=== PATIENT | male | born 1965 | race Caucasian/White ===

== ENCOUNTER 2017-07-29 14:17 | Inpatient (IN) | payer OTHER ==
[~2017-07-29] VITALS: Ht 167.6 cm; Wt 91.2 kg
[2017-07-29] MEDS ORDERED: ALLO100T PO (14:27)
[2017-07-29] MEDS ORDERED: ONDANSETRON 4 MG/2 ML VIAL ONE ×2 (14:41→15:47)
[2017-07-29] MEDS ORDERED: HYDROMORPHONE 2 MG/1 ML DISP.SYRIN ONE ×2 (14:41→15:47)
[2017-07-29] MEDS ORDERED: HYDROMORPHONE 1 MG/1 ML DISP.SYRIN IV ONE ×2 (14:45→15:45)
[2017-07-29] MEDS ORDERED: IV NORMAL SALINE 1000 ML BAG IV ONE (14:45)
[2017-07-29] MEDS ORDERED: ONDANSETRON 4 MG/2 ML VIAL IV ONE (14:45)
[2017-07-29 14:59] LABS: CREATININE 1.1 mg/dL (0.6-1.3); POTASSIUM 3.8 mmol/L (3.5-5.1)
[2017-07-29 15:02] LABS: BASOPHILS # (AUTO) 0.1 K/uL (0.0-8.0); BASOPHILS % (AUTO) 0.4 % (0.0-2.0); EOSINOPHILS # (AUTO) 0.1 K/uL (0.0-0.7); EOSINOPHILS % (AUTO) 0.8 % (0.0-7.0); HEMATOCRIT 44.7 % (36.7-47.1); HEMOGLOBIN 15.3 g/dL (12.5-16.3); LYMPHOCYTES # (AUTO) 1.4 K/uL (20.0-40.0); LYMPHOCYTES % (AUTO) 9.8 % (20.5-51.5); MEAN CORPUSCULAR HEMOGLOBIN 29.6 uug (23.8-33.4); MEAN CORPUSCULAR HGB CONC 34 g/dL (32.5-36.3); MEAN CORPUSCULAR VOLUME 86.3 fL (73.0-96.2); MONOCYTES # (AUTO) 0.9 K/uL (2.0-10.0); MONOCYTES % (AUTO) 6.4 % (0.0-11.0); NEUTROPHILS # (AUTO) 12.1 K/uL (1.8-8.9); NEUTROPHILS % (AUTO) 82.6 % (38.5-71.5); PLATELET COUNT (AUTO) 207 K/uL (152-348); RED BLOOD CELL COUNT(AUTO) 5.18 MIL/uL (4.06-5.63); WHITE BLOOD COUNT (AUTO) 14.6 K/uL (3.6-10.2)
[2017-07-29 15:05] LABS: BILIRUBIN,DIRECT 0.1 mg/dL (0.0-0.2); BILIRUBIN,TOTAL 0.9 mg/dL (0.2-1.0); TOTAL PROTEIN, SERUM 7.7 g/dL (6.4-8.2)
[2017-07-29] MEDS ORDERED: ONDANSETRON IV *ER 4 MG/2 ML VIAL IV ONE (15:45)
--- NOTE | 2017-07-29 16:11 | NUR ---
transfer to floor pending on bed availability
--- NOTE | 2017-07-29 16:30 | NUR ---
wilmer jalloh at bedside.
--- NOTE | 2017-07-29 17:00 | NUR ---
pt transfered to floor.
--- NOTE | 2017-07-29 17:15 | NUR ---
Patient in from [facility] via [facility]. Pt. AAOX4. vitals signs stable. No c/of pain over all skin c.d.i. patient placed on monitor. Pt's sister and next of kin at bedside. Addendum: 07/29/17 at 1822 by SHAYNE PURCELL RN [facility] patent. and came up infusing with Normal saline as reported to be finished.
[2017-07-29 17:40] LABS: *BILIRUBIN,URIN NEGATIVE (NEGATIVE); *BLOOD, URINE 2+ (NEGATIVE); *CLARITY,URINE CLEAR (CLEAR); *COLOR,URINE YELLOW (YELLOW); *KETONES,URINE NEGATIVE (NEGATIVE); *PROTEIN,URINE TRACE (NEGATIVE); *UROBILINOGEN,URINE 0.2 E.U./dl (NORMAL); LEUKOCYTE ESTERASE ,URINE NEGATIVE (NEGATIVE); NITRITE, URINE NEGATIVE (NEGATIVE); PH,URINE 5.5 (5.0-8.0); UGLUCOSE NEGATIVE (NEGATIVE)
[2017-07-29] MEDS ORDERED: ONDANSETRON 4 MG/2 ML VIAL IV PRN (17:45)
[2017-07-29] MEDS ORDERED: MORPHINE SULFATE 2 MG/1 ML DISP.SYRIN IV PRN (17:45)
[2017-07-29] MEDS ORDERED: HYDROCODONE/APAP 10-325 MG TABLET PO PRN (17:45)
[2017-07-29] MEDS ORDERED: ZOLPIDEM 5 MG TABLET PO PRN (17:45)
[2017-07-29] MEDS ORDERED: MAGNESIUM HYDROXIDE 30 ML LIQUID UDC PO PRN (17:45)
[2017-07-29] MEDS ORDERED: ACETAMINOPHEN 325 MG TABLET PO PRN (17:45)
[2017-07-29 17:47] LABS: BACTERIA,URINE FEW /HPF (NONE SEEN); SQUAMOUS EPITHELIAL CELL,UR FEW /HPF (NONE SEEN); WBC,URINE 0-3 /HPF (0-3)
--- NOTE | 2017-07-29 18:00 | NUR ---
Mari Rodriguez surgeon Dr. Ames in the room and applied abdominal binder for reduction of protruded hernia. Admitting attending NCaleb P. in the unit and aware of pt's arrival to room 216.
[2017-07-29 18:16] VITALS: BP 121/71
--- NOTE | 2017-07-29 19:00 | NUR ---
RECEIVED PT ASLEEP ON BED COMFORTABLY. PT SHOWS NO SIGNS OF DISTRESS. PT IV INTACT AND PATENT. CALL LIGHT WITHIN REACH. BED ALARM ON AND IN LOW POSITION, SIDE RAILS UPX2. WILL CONTINUE TO MONITOR.
[2017-07-29 20:00] VITALS: BP 104/66
[2017-07-29] MEDS: MORPHINE SULFATE 4 MG/1 ML DISP.SYRIN IV PRN (20:43)
[2017-07-29] MEDS: ENOXAPARIN SODIUM 40 MG/0.4 ML DISP.SYRIN SQ SCH ×2 (20:48→20:51)
[2017-07-29] MEDS: IV NS 1000 ML 1,000 ML IV PRN (23:57)
[2017-07-30] MEDS: MORPHINE SULFATE 4 MG/1 ML DISP.SYRIN IV PRN ×6 (00:52→22:11)
[2017-07-30 04:00] VITALS: BP 119/70
[2017-07-30 05:46] LABS: BASOPHILS % (AUTO) 0.3 % (0.0-2.0); EOSINOPHILS # (AUTO) 0.1 K/uL (0.0-0.7); EOSINOPHILS % (AUTO) 0.8 % (0.0-7.0); HEMATOCRIT 43.9 % (36.7-47.1); LYMPHOCYTES # (AUTO) 1.1 K/uL (20.0-40.0); LYMPHOCYTES % (AUTO) 7.2 % (20.5-51.5); MEAN CORPUSCULAR HEMOGLOBIN 29.8 uug (23.8-33.4); MEAN CORPUSCULAR HGB CONC 34 g/dL (32.5-36.3); MONOCYTES % (AUTO) 6.1 % (0.0-11.0); NEUTROPHILS # (AUTO) 13.4 K/uL (1.8-8.9); NEUTROPHILS % (AUTO) 85.6 % (38.5-71.5); PLATELET COUNT (AUTO) 203 K/uL (152-348); RED BLOOD CELL COUNT(AUTO) 5.05 MIL/uL (4.06-5.63); WHITE BLOOD COUNT (AUTO) 15.6 K/uL (3.6-10.2)
[2017-07-30 05:58] LABS: MAGNESIUM 1.8 mg/dL (1.8-2.4); PHOSPHOROUS 3.3 mg/dL (2.5-4.9); POTASSIUM 4.2 mmol/L (3.5-5.1)
--- NOTE | 2017-07-30 06:12 | NUR ---
PT SLEPT THROUGHOUT THE SHIFT. PT SHOWS NO SIGNS OF DISTRESS. PT IV INTACT AND PATENT. PRESCRIBED MEDICATION GIVEN AND PT TOLERATED IT WELL.PAIN MANAGEMENT DONE.PT STABLE. PT VITAL SIGNS WITHIN NORMAL LIMIT. CALL LIGHT WITHIN REACH. BED ALARM ON AND IN LOW POSITION, SIDE RAILS UPX2. WILL ENDORSE TO DAYSHIFT NURSE.
--- NOTE | 2017-07-30 07:05 | NUR ---
Received pt sleeping in bed in a semi-carrillo position with no immediate s/s of pain, distress, discomfort or SOB. Bed at lowest position for safety and call light within reach for assistance.
[2017-07-30] MEDS: ALLOPURINOL 100 MG TABLET PO SCH (09:04)
[2017-07-30] MEDS: PANTOPRAZOLE SODIUM 40 MG VIAL IV SCH (09:04)
[2017-07-30 11:23] VITALS: BP 115/78
[2017-07-30] MEDS ORDERED: ALBUTEROL SULFATE 2.5 MG/ 0.5 ML NEBU NEB PRN (11:45)
[2017-07-30] MEDS ORDERED: IPRATROPIUM BROMIDE 0.5 MG/2.5 ML NEBU NEB PRN (11:45)
[2017-07-30] MEDS ORDERED: MAGNESIUM CITRATE 296 ML BOTTLE PO ONE (13:30)
[2017-07-30] MEDS: PIPERACILLIN/TAZOBACTAM/D5W 3.375 G in PREMIXED 1 EACH IV SCH ×2 (14:30→22:11)
[2017-07-30] MEDS: IV NS 1000 ML 1,000 ML IV PRN (14:31)
[2017-07-30 15:36] VITALS: BP 104/74
--- NOTE | 2017-07-30 18:42 | NUR ---
Pain medication given, pt states 7/10 abdomen pain. IV hydration running. Pt is under no immediate s/s of SOB, or distress. Pt has been compliant with nursing care and medications. Pt will be NPO after midnight due to surgery tomorrow.
--- NOTE | 2017-07-30 19:00 | NUR ---
RECEIVED PT AWAKE, ALERT, ORIENTEDX4. PT SHOWS NO SIGNS OF DISTRESS. PT IV INTACT AND PATENT. PT NEED INFORMED CONSENT FOR TANISHA PROCEDURE. CALL LIGHT WITHIN REACH, BED ALARM ON AND IN LOW POSITION, SIDE RAILSX2. WILL CONTINUE TO MONITOR.
[2017-07-30 20:16] VITALS: BP 106/66
[2017-07-30] MEDS: ENOXAPARIN SODIUM 40 MG/0.4 ML DISP.SYRIN SQ SCH ×2 (20:51→20:54)
[2017-07-31] MEDS: MORPHINE SULFATE 4 MG/1 ML DISP.SYRIN IV PRN ×4 (02:31→20:19)
[2017-07-31 04:00] VITALS: BP 102/69
[2017-07-31] MEDS: PIPERACILLIN/TAZOBACTAM/D5W 3.375 G in PREMIXED 1 EACH IV SCH ×3 (05:35→21:00)
[2017-07-31 05:59] LABS: BASOPHILS % (AUTO) 0.4 % (0.0-2.0); EOSINOPHILS # (AUTO) 0.2 K/uL (0.0-0.7); EOSINOPHILS % (AUTO) 1.9 % (0.0-7.0); HEMATOCRIT 41.6 % (36.7-47.1); HEMOGLOBIN 14.3 g/dL (12.5-16.3); LYMPHOCYTES # (AUTO) 1.1 K/uL (20.0-40.0); LYMPHOCYTES % (AUTO) 11.6 % (20.5-51.5); MEAN CORPUSCULAR HEMOGLOBIN 29.8 uug (23.8-33.4); MEAN CORPUSCULAR HGB CONC 34 g/dL (32.5-36.3); MONOCYTES # (AUTO) 0.8 K/uL (2.0-10.0); MONOCYTES % (AUTO) 8.6 % (0.0-11.0); NEUTROPHILS # (AUTO) 7.1 K/uL (1.8-8.9); NEUTROPHILS % (AUTO) 77.5 % (38.5-71.5); PLATELET COUNT (AUTO) 186 K/uL (152-348); RED BLOOD CELL COUNT(AUTO) 4.79 MIL/uL (4.06-5.63); WHITE BLOOD COUNT (AUTO) 9.2 K/uL (3.6-10.2)
[2017-07-31 06:18] LABS: POTASSIUM 4.1 mmol/L (3.5-5.1)
--- NOTE | 2017-07-31 06:56 | NUR ---
PT SLEPT THROUGHOUT THE SHIFT.PT SHOWS NO SIGNS OF DISTRESS. PT IV INTACT AND PATENT.PRESCRIBED MEDICATION GIVEN AND PT TOLERATED IT WELL. INFORMED CONSENT ON CHART. PREOP CHECKLIST INITIATED.CALL LIGHT WITHIN REACH, BED ALARM ON AND IN LOW POSITION, SIDE RAILSX2.SAFETY AND COMFORT PROVIDED. ALL NEEDS ARE MET. WILL ENDORSE TO DAYSHIFT NURSE.
--- NOTE | 2017-07-31 07:55 | NUR ---
Awake, alert, oriented x 4. IVF infusing. NPO re instructed and maintained. Discussed plan of care for surgery today
[2017-07-31] MEDS ORDERED: LIDOCAINE HCL 1% 20 ML VIAL ONE (08:09)
[2017-07-31] MEDS ORDERED: LIDOCAINE 1%-EPI 1:100,000 20 ML VIAL ONE (08:10)
[2017-07-31] MEDS ORDERED: BUPIVACAINE 0.25% 30 ML VIAL ONE (08:10)
[2017-07-31] MEDS: IV NS 1000 ML 1,000 ML IV PRN (08:51)
[2017-07-31] MEDS: PANTOPRAZOLE SODIUM 40 MG VIAL IV SCH (08:51)
[2017-07-31] MEDS: ALLOPURINOL 100 MG TABLET PO SCH (08:51)
[2017-07-31] MEDS ORDERED: POLYMYXIN B SULFATE 500,000 UNITS, BACITRACIN 50,000 UNITS, NORMAL SALINE 20 ML MC ONE ×3 (09:00)
[2017-07-31] MEDS ORDERED: SEVOFLURANE 250 ML BOTTLE ONE (09:02)
[2017-07-31] MEDS ORDERED: DESFLURANE ANESTHESIA GAS 240 ML BOTTLE ONE (09:02)
[2017-07-31] MEDS ORDERED: ALBUTEROL SULFATE 8 GM HFA.AER.AD ONE (09:59)
[2017-07-31] MEDS ORDERED: MIDAZOLAM HCL 2 MG/2 ML VIAL ONE (10:00)
[2017-07-31] MEDS ORDERED: FENTANYL CITRATE 250 MCG/5 ML AMPUL ONE (10:01)
[2017-07-31] MEDS ORDERED: METOCLOPRAMIDE HCL 10 MG/2 ML VIAL ONE (10:07)
[2017-07-31] MEDS ORDERED: PANTOPRAZOLE SODIUM 40 MG VIAL IV SCH (11:33)
[2017-07-31] MEDS ORDERED: KETOROLAC TROMETHAMINE 30 MG INJ ONE (12:37)
[2017-07-31] MEDS ORDERED: HYDROMORPHONE 2 MG/1 ML DISP.SYRIN ONE (12:45)
--- NOTE | 2017-07-31 15:00 | NUR ---
Received from recovery, by bed, drowsy but easily aroused. O2 at 2L/NC with O2 sat of 95%. IVF infusing. Sister at bedside
[2017-07-31 15:06] VITALS: BP 113/63
[2017-07-31] MEDS ORDERED: ONDANSETRON 4 MG/2 ML VIAL IV ONE (17:26)
[2017-07-31] MEDS ORDERED: CEFAZOLIN 1 G VIAL MC ONE (17:26)
[2017-07-31] MEDS ORDERED: PROPOFOL 200 MG/20 ML BOTTLE IV ONE (17:26)
[2017-07-31] MEDS ORDERED: VECURONIUM BROMIDE 10 MG VIAL IV ONE (17:26)
[2017-07-31] MEDS ORDERED: NEOSTIGMINE METHYLSULFATE 10 MG/10 ML VIAL IV ONE (17:26)
[2017-07-31] MEDS ORDERED: GLYCOPYRROLATE 0.2 MG/ML VIAL MC ONE (17:26)
[2017-07-31] MEDS ORDERED: LIDOCAINE-MPF 2% 5 ML VIAL MC ONE (17:26)
--- NOTE | 2017-07-31 18:27 | NUR ---
Tolerated clear liquid diet. No nausea/vomiting noted. Voided freely. Passing gas. Denies pain at this time
--- NOTE | 2017-07-31 19:42 | NUR ---
Received pt AAO x 4, pt states that he is passing gas. No s/s of distress noted at this time. Pt made aware of plan of care. Safety measures provided. Will continue to monitor closely.
[2017-07-31 20:00] VITALS: BP 109/80
[2017-07-31] MEDS: ENOXAPARIN SODIUM 40 MG/0.4 ML DISP.SYRIN SQ SCH ×2 (20:25→20:28)
[2017-08-01] MEDS: MORPHINE SULFATE 4 MG/1 ML DISP.SYRIN IV PRN ×2 (00:49→04:54)
[2017-08-01 04:00] VITALS: BP 115/52
--- NOTE | 2017-08-01 05:11 | NUR ---
Deep breathing, relaxation techniques and pain management provided as ordered. Pt encouraged to walk around the hallways. Pt states that he is still passing gas, but states discomfort on abdominal area. Mild distension observed on abdominal area, but no s/s of acute distress noted. Will continue to monitor closely and endorse accordingly.
[2017-08-01] MEDS: PIPERACILLIN/TAZOBACTAM/D5W 3.375 G in PREMIXED 1 EACH IV SCH (05:26)
[2017-08-01 07:07] LABS: CREATININE 1.1 mg/dL (0.6-1.3); POTASSIUM 4.1 mmol/L (3.5-5.1)
[2017-08-01 07:20] LABS: BASOPHILS % (AUTO) 0.2 % (0.0-2.0); EOSINOPHILS # (AUTO) 0.1 K/uL (0.0-0.7); EOSINOPHILS % (AUTO) 1.7 % (0.0-7.0); LYMPHOCYTES % (AUTO) 13.3 % (20.5-51.5); MEAN CORPUSCULAR HGB CONC 36 g/dL (32.5-36.3); MEAN CORPUSCULAR VOLUME 86.7 fL (73.0-96.2); MONOCYTES # (AUTO) 0.8 K/uL (2.0-10.0); MONOCYTES % (AUTO) 9.9 % (0.0-11.0); NEUTROPHILS # (AUTO) 5.8 K/uL (1.8-8.9); NEUTROPHILS % (AUTO) 74.9 % (38.5-71.5); PLATELET COUNT (AUTO) 208 K/uL (152-348); RED BLOOD CELL COUNT(AUTO) 4.14 MIL/uL (4.06-5.63); WHITE BLOOD COUNT (AUTO) 7.7 K/uL (3.6-10.2)
[2017-08-01 07:38] LABS: HEMOGLOBIN 12.8 g/dL (12.5-16.3)
[2017-08-01 07:39] LABS: HEMATOCRIT 35.9 % (36.7-47.1)
[2017-08-01] MEDS: ALLOPURINOL 100 MG TABLET PO SCH (08:11)
[2017-08-01] MEDS ORDERED: HYDROMORPHONE 2 MG/1 ML DISP.SYRIN IV PRN (08:15)
[2017-08-01] MEDS ORDERED: HYDROMORPHONE 1 MG/1 ML DISP.SYRIN IV PRN (08:15)
--- NOTE | 2017-08-01 08:15 | NUR ---
Irritable, complaining of pain not controlled through out the night and doesn't like the clear liquids. Reassured. Advanced diet to soft. Orlin Allen informed with order for Dilaudid IV given.
--- NOTE | 2017-08-01 09:30 | NUR ---
Tolerated soft diet. Pain relieved, resting. IS at bedside, instructed of use
--- NOTE | 2017-08-01 11:06 | NUR ---
Patient is 52 y/o male who present with abdominal pain,per MD notes umbilical hernia s/p manual reduction,pain improved Prior to NPO status,patient was on clear liquid diet, ate 80% current wt is 90lb,BMI 14.5,pt was asleep time of visit, pt does not appear underweight,spoke to RN and request to reweigh patient, bowel sound present skin:umbilical hernia Rec advance diet to solid texture when medically feasible. Will monitor PO intake, and new weight. Addendum: 08/05/17 at [address] Amended: Links added.
[2017-08-01 11:40] VITALS: BP 116/74
--- NOTE | 2017-08-01 12:39 | NUR ---
Patient anxious to go home. Called Dr. Ames with okay for discharge. José Miguel Allen [employer]OR[employer] PHYSIOTHERAPIST with discharge order to home. Saline lock removed. Prescription and DC instruction given to patient, verbalized understanding. Went home per ambulatory per request in fair condition, not in distress, afebrile.
[2017-08-02] MEDS ORDERED: PANTOPRAZOLE SODIUM 40 MG TABLET.DR PO SCH (07:00)
== END 2017-08-01 12:44 | disposition home or self-care (01) | DRG 227 ==
LOC: ER 14:17 → TELE 16:51 → MED 18:26
PROVIDERS: ADMIT Internal Medicine; ATTEND Nurse Practitioner Acute Care
PROC: 0WUF4JZ Supplement Abdominal Wall with Synthetic Substitute, Percutaneous Endoscopic Approach (ICD-10-PCS; principal; 2017-07-31 10:54)
DX: K43.9 Ventral hernia without obstruction or gangrene (principal); K70.0 Alcoholic fatty liver; M10.9 Gout, unspecified; K66.0 Peritoneal adhesions (postprocedural) (postinfection); J45.909 Unspecified asthma, uncomplicated; F10.20 Alcohol dependence, uncomplicated; Y90.9 Presence of alcohol in blood, level not specified; E66.9 Obesity, unspecified; Z68.32 Body mass index [BMI] 32.0-32.9, adult; Z71.3 Dietary counseling and surveillance; K21.9 Gastro-esophageal reflux disease without esophagitis; F12.90 Cannabis use, unspecified, uncomplicated; R91.1 Solitary pulmonary nodule; K59.00 Constipation, unspecified; D72.829 Elevated white blood cell count, unspecified
CPT/HCPCS: 36415; 71045; 83690; 83735; 84100; 85025; 85730; 93005; 93307; 94664; A4663; C9113; J0690; J1170; J1650; J1885; J2250; J2270; J2405; J2543; J2710; J2765; J3010; J3490; J3535; J3590; J7030; J8499

== ENCOUNTER 2019-04-11 22:07 | Emergency (ER) | payer OTHER ==
[~2019-04-11] VITALS: Ht 172.7 cm; Wt 90.7 kg
[~2019-04-11 22:07] MED LIST: ALLO100T PO
--- NOTE | 2019-04-11 22:21 | NUR ---
Dr. Tesfaye at bedside for MSE.
[2019-04-11] MEDS ORDERED: IBUPROFEN 800 MG TABLET PO ONE (22:30)
[2019-04-11] MEDS ORDERED: ALBUTEROL SULFATE 2.5 MG/3 ML NEBU NEB ONE (22:30)
[2019-04-11] MEDS ORDERED: IBUPROFEN 800 MG TABLET ONE (22:30)
--- NOTE | 2019-04-11 22:32 | NUR ---
Respiratory at bedside.
[2019-04-11] MEDS ORDERED: ALBUTEROL SULFATE 2.5 MG/3 ML NEBU ONE (22:34)
[2019-04-11 22:54] VITALS: BP 125/80
--- NOTE | 2019-04-11 22:54 | NUR ---
Patient discharged to home in stable conditon. Written and verbal after care instructions given. Patient verbalizes understanding of instructions. Pt ambulated out of ER with steady gait, no acute signs of distress, VSS, all belongings taken.
== END 2019-04-11 22:55 | disposition home or self-care (01) ==
LOC: ER 22:10
DX: K40.91 Unilateral inguinal hernia, without obstruction or gangrene, recurrent (principal); J45.909 Unspecified asthma, uncomplicated; F12.10 Cannabis abuse, uncomplicated; F17.200 Nicotine dependence, unspecified, uncomplicated; Z79.899 Other long term (current) drug therapy; Z90.49 Acquired absence of other specified parts of digestive tract
CPT/HCPCS: A4663

== ENCOUNTER 2019-12-07 20:21 | Inpatient (IN) | payer OTHER ==
[~2019-12-07] VITALS: Ht 172.7 cm; Wt 86.2 kg
[2019-12-07] MEDS ORDERED: ONDANSETRON ODT 4 MG TAB.RAPDIS SL ONE (21:00)
[2019-12-07] MEDS ORDERED: HYDROMORPHONE HCL 2 MG TABLET PO ONE (21:00)
[2019-12-07] MEDS ORDERED: ONDANSETRON ODT 4 MG TAB.RAPDIS ONE (21:02)
[2019-12-07] MEDS ORDERED: HYDROMORPHONE HCL 2 MG TABLET ONE (21:03)
[2019-12-07 21:17] LABS: BASOPHILS # (AUTO) 0.1 K/uL (0.0-8.0); BASOPHILS % (AUTO) 0.8 % (0.0-2.0); EOSINOPHILS # (AUTO) 0.1 K/uL (0.0-0.7); EOSINOPHILS % (AUTO) 1.2 % (0.0-7.0); HEMATOCRIT 40.8 % (36.7-47.1); HEMOGLOBIN 14.3 g/dL (12.5-16.3); LYMPHOCYTES # (AUTO) 0.9 K/uL (20.0-40.0); LYMPHOCYTES % (AUTO) 10.5 % (20.5-51.5); MEAN CORPUSCULAR HEMOGLOBIN 30.6 uug (23.8-33.4); MEAN CORPUSCULAR HGB CONC 35 g/dL (32.5-36.3); MEAN CORPUSCULAR VOLUME 87.1 fL (73.0-96.2); MONOCYTES # (AUTO) 0.8 K/uL (2.0-10.0); NEUTROPHILS % (AUTO) 78.5 % (38.5-71.5); PLATELET COUNT (AUTO) 303 K/uL (152-348); RED BLOOD CELL COUNT(AUTO) 4.69 MIL/uL (4.06-5.63); WHITE BLOOD COUNT (AUTO) 8.9 K/uL (3.6-10.2)
[2019-12-07 21:25] LABS: CREATININE 1.3 mg/dL (0.6-1.3); POTASSIUM 3.5 mmol/L (3.5-5.1)
[2019-12-07 21:31] LABS: BILIRUBIN,TOTAL 0.5 mg/dL (0.2-1.0); TOTAL PROTEIN, SERUM 8.2 g/dL (6.4-8.2)
[2019-12-07] MEDS ORDERED: TEMAZEPAM 15 MG CAPSULE PO PRN (22:45)
[2019-12-07] MEDS ORDERED: ACETAMINOPHEN 325 MG TABLET PO PRN (22:45)
[2019-12-07] MEDS ORDERED: MORPHINE SULFATE 2 MG/1 ML DISP.SYRIN IV PRN (22:45)
[2019-12-07] MEDS ORDERED: HYDROCODONE/APAP 5-325MG TABLET PO PRN (22:45)
[2019-12-07] MEDS ORDERED: MAGNESIUM HYDROXIDE 30 ML LIQUID UDC PO PRN (22:45)
[2019-12-07] MEDS ORDERED: Z GUARD REMEDY PASTE 57 GM TUBE TOP PRN (22:45)
[2019-12-07] MEDS ORDERED: ONDANSETRON 4 MG/2 ML VIAL IV PRN (22:45)
[2019-12-07] MEDS ORDERED: HYDR-4384 PO (22:48)
[2019-12-08 05:00] VITALS: BP 133/47
[2019-12-08] MEDS: HYDROMORPHONE 1 MG/1 ML DISP.SYRIN IV PRN ×3 (06:09→21:04)
[2019-12-08 07:16] LABS: BASOPHILS % (AUTO) 0.5 % (0.0-2.0); EOSINOPHILS # (AUTO) 0.1 K/uL (0.0-0.7); EOSINOPHILS % (AUTO) 1.7 % (0.0-7.0); HEMATOCRIT 38.5 % (36.7-47.1); HEMOGLOBIN 13.3 g/dL (12.5-16.3); LYMPHOCYTES # (AUTO) 1.2 K/uL (20.0-40.0); LYMPHOCYTES % (AUTO) 17.7 % (20.5-51.5); MEAN CORPUSCULAR HEMOGLOBIN 30.3 uug (23.8-33.4); MEAN CORPUSCULAR HGB CONC 35 g/dL (32.5-36.3); MEAN CORPUSCULAR VOLUME 87.6 fL (73.0-96.2); MONOCYTES # (AUTO) 0.6 K/uL (2.0-10.0); MONOCYTES % (AUTO) 9.3 % (0.0-11.0); NEUTROPHILS # (AUTO) 4.8 K/uL (1.8-8.9); NEUTROPHILS % (AUTO) 70.8 % (38.5-71.5); PLATELET COUNT (AUTO) 305 K/uL (152-348); WHITE BLOOD COUNT (AUTO) 6.8 K/uL (3.6-10.2)
[2019-12-08 07:32] LABS: CREATININE 1.1 mg/dL (0.6-1.3); PHOSPHOROUS 3.8 mg/dL (2.5-4.9); POTASSIUM 3.9 mmol/L (3.5-5.1)
[2019-12-08 11:38] VITALS: BP_SYST 100; BP_SYST 94; BP_DIAS 55
[2019-12-08 15:14] VITALS: BP 102/67
[2019-12-08 20:22] VITALS: BP 120/95
[2019-12-09] MEDS: HYDROMORPHONE 1 MG/1 ML DISP.SYRIN IV PRN ×5 (01:07→21:45)
[2019-12-09] MEDS ORDERED: ALBUTEROL SULFATE 2.5 MG/ 0.5 ML NEBU NEB SCH (01:30)
[2019-12-09 04:27] VITALS: BP 119/74
[2019-12-09] MEDS: ALBUTEROL SULFATE 2.5 MG/ 0.5 ML NEBU NEB PRN ×2 (05:29→14:20)
[2019-12-09 07:32] LABS: THYROID STIMULATING HORMONE 2.12 mIU/mL (0.358-3.740)
[2019-12-09 07:58] LABS: URIC ACID 7.9 mg/dL (3.5-7.2)
[2019-12-09] MEDS: COLCHICINE 0.6 MG TABLET PO SCH (08:45)
[2019-12-09] MEDS: predniSONE 20 MG TABLET PO SCH (08:45)
[2019-12-09] MEDS: CYANOCOBALAMIN 1000 MCG/ML VIAL IM SCH (08:45)
[2019-12-09 11:40] VITALS: BP 100/68
[2019-12-09 15:18] VITALS: BP 132/78
[2019-12-09 21:12] VITALS: BP 119/81
[2019-12-10 05:28] VITALS: BP 111/80
[2019-12-10] MEDS: COLCHICINE 0.6 MG TABLET PO SCH (08:16)
[2019-12-10] MEDS: predniSONE 20 MG TABLET PO SCH (08:16)
[2019-12-10] MEDS: CYANOCOBALAMIN 1000 MCG/ML VIAL IM SCH (08:17)
[2019-12-10 13:08] VITALS: BP 119/65
[2019-12-10] MEDS: ALBUTEROL SULFATE 2.5 MG/ 0.5 ML NEBU NEB PRN (13:52)
[2019-12-10] MEDS ORDERED: Colchicine PO (14:44)
[2019-12-10] MEDS ORDERED: ALLO300T2 PO (14:44)
== END 2019-12-10 15:35 | disposition home or self-care (01) | DRG 351 ==
LOC: ER 20:23 → MEDSURG3 12-08 04:05
PROVIDERS: ADMIT Internal Medicine; ATTEND Internal Medicine
DX: M10.9 Gout, unspecified (principal); E66.9 Obesity, unspecified; G62.9 Polyneuropathy, unspecified; J45.909 Unspecified asthma, uncomplicated; G89.4 Chronic pain syndrome; K76.0 Fatty (change of) liver, not elsewhere classified; M51.36 Other intervertebral disc degeneration, lumbar region; M12.9 Arthropathy, unspecified; E53.8 Deficiency of other specified B group vitamins; Z68.28 Body mass index [BMI] 28.0-28.9, adult; F10.21 Alcohol dependence, in remission; F12.11 Cannabis abuse, in remission
CPT/HCPCS: 36415; 72131; 83735; 84100; 84443; 84550; 85025; 85610; 85651; 86140; 94640; 94664; A4663; G0378; J1170; J3420; J7512; Q0162

== ENCOUNTER 2020-11-30 09:58 | Emergency (ER) | payer OTHER ==
[~2020-11-30] VITALS: Ht 175.3 cm; Wt 88.5 kg
[~2020-11-30 09:58] MED LIST changes: -ALLO100T PO; +ALLO300T2 PO; +Colchicine PO; +HYDR-4384 PO
--- NOTE | 2020-11-30 10:20 | NUR ---
at bedside for assessment
[2020-11-30] MEDS ORDERED: INDOMETHACIN 25 MG CAPSULE PO ONE (10:30)
[2020-11-30] MEDS ORDERED: INDOMETHACIN 25 MG CAPSULE ONE (10:42)
[2020-11-30 11:13] LABS: HEMATOCRIT 42.7 % (36.7-47.1); MEAN CORPUSCULAR HEMOGLOBIN 30.6 uug (23.8-33.4); MEAN CORPUSCULAR VOLUME 88.1 fL (73.0-96.2); PLATELET COUNT (AUTO) 245 K/uL (152-348)
[2020-11-30 11:17] LABS: CREATININE 0.9 mg/dL (0.6-1.3)
[2020-11-30 11:23] LABS: BILIRUBIN,TOTAL 0.8 mg/dL (0.2-1.0); TOTAL PROTEIN, SERUM 7.9 g/dL (6.4-8.2); URIC ACID 8.4 mg/dL (3.5-7.2)
[2020-11-30] MEDS ORDERED: MORPHINE SULFATE 4 MG/1 ML DISP.SYRIN IM ONE (11:45)
--- NOTE | 2020-11-30 12:03 | NUR ---
Morphine injection given in left deltoid
--- NOTE | 2020-11-30 12:40 | NUR ---
Patient noted resting in bed, no signs of acute distress noted, no complaints of pain
[2020-11-30] MEDS ORDERED: INDO50CA92 PO (12:59)
[2020-11-30] MEDS ORDERED: IBUP-1955 PO (12:59)
--- NOTE | 2020-11-30 13:20 | NUR ---
left hand and arm wrapped in patti bandage and placed in sling, per MD orders, patient states pain relief
--- NOTE | 2020-11-30 14:00 | NUR ---
Patient discharged to home in stable condition. No signs of acutes distress, took all belongings Written and verbal after care instructions given. Patient verbalizes understanding of instructions. Stressed follow up or return to ER for worsening s/s.
[2020-11-30 14:40] VITALS: BP 162/93
== END 2020-11-30 14:00 | disposition home or self-care (01) ==
LOC: ER 09:58
DX: M25.532 Pain in left wrist (principal); M79.632 Pain in left forearm; J45.909 Unspecified asthma, uncomplicated; M10.9 Gout, unspecified; Z79.899 Other long term (current) drug therapy
CPT/HCPCS: 36415; 73090; 80053; 84550; 85025; 93971; 96372; 99284; J2270; A4663